=== PATIENT | female | born 1965 | race Caucasian/White ===

== ENCOUNTER → 2024-12-12 | Day surgery (SDC) | payer BC ==
[2024-12-10 09:02] LABS: BASOPHILS % 1.2 % (0.0-1.0); EOSINOPHILS % 2.4 % (0.0-6.0); LYMPHOCYTES % 28.9 % (18.0-39.1); MONOCYTES % 9.5 % (4.4-11.3); NEUTROPHILS % 58.0 % (38.7-80.0); RED CELL DISTRIBUTION WIDTH 12.7 % (11.7-14.4)
[~2024-12-12] MED LIST: ACETAMINOPHEN 1000 MG/100 ML 100 ML IV ONE; ACETAMINOPHEN500 M1 PO; ASPIRIN 325 MG TAB PO SCH; BUPIVACAINE 0.5%/EPI 30 ML SDV INJ ONE; CELECOXIB 100 MG CAP PO SCH; DEXAMETHASONE SOD PHOS INJ 4 MG/ML SDV ONE; DOCUSATE SODIUM 100 MG CAP PO PRN; FENTANYL CITRATE/PF 100MCG/2 ML INJ ONE; HYDROCODONE/APAP 7.5MG-325MG 1 EA TAB PO PRN; HYDROMORPHONE 2MG/ML ONE; IBUPROFEN200 MG PO; LIDOCAINE HCL 2% LOCAL INJ 5 ML SDV VIAL INJ ONE; MIDAZOLAM HCL 2 MG/2 ML VIAL ONE; OMEPRAZOLE40 MG PO; ONDANSETRON HCL INJ 2MG/ML 2ML 2 MG/ML VIAL IV PRN; ONDANSETRON HCL INJ 2MG/ML 2ML 2 MG/ML VIAL ONE; PROPOFOL IV EMULSION 0 ML IV ONE; PROPOFOL IV EMULSION 10 MG/ML 20 ML VIAL ONE; ROPIVACAINE/EPI/CLONIDINE/KET 50 ML SYRINGE INJ ONE; SEVOFLURANE INHAL SOLN 250 ML PEN BTL ONE; ULTRAM 50MG50 MG PO
[2024-12-12] MEDS: LACTATED RINGER'S 1,000 ML ONE (08:09)
[2024-12-12] MEDS: CEFAZOLIN SODIUM 2 GM ONE (08:12)
[2024-12-12] MEDS: SCOPOLAMINE 1 MG PATCH ONE (08:57)
[2024-12-12] MEDS: MEPERIDINE HCL INJ 25 MG/ML VIAL ONE (11:34)
[2024-12-12] MEDS: HYDROMORPHONE 1MG/1ML INJ ONE (12:12)
[2024-12-12 13:30] VITALS: BP 138/77; PULSE 82; RESP 18; O2SAT 98
== END | disposition home or self-care (01) ==
LOC: OR 07:12
PROVIDERS: ATTEND Orthopaedic Surgery Adult Reconstructive Orthopaedic Surgery
DX: M17.11 Unilateral primary osteoarthritis, right knee (principal); M19.042 Primary osteoarthritis, left hand; M19.041 Primary osteoarthritis, right hand; M32.9 Systemic lupus erythematosus, unspecified; I10 Essential (primary) hypertension; E03.9 Hypothyroidism, unspecified; G47.30 Sleep apnea, unspecified; Z96.641 Presence of right artificial hip joint; Z79.891 Long term (current) use of opiate analgesic; Z79.631 Long term (current) use of antimetabolite agent; Z79.899 Other long term (current) drug therapy; Z01.810 Encounter for preprocedural cardiovascular examination; Z01.812 Encounter for preprocedural laboratory examination; Z79.52 Long term (current) use of systemic steroids; Z79.84 Long term (current) use of oral hypoglycemic drugs; Z79.890 Hormone replacement therapy
CPT/HCPCS: 27447; 36415; 73560; 85025; 86850; 86900; 93005; 97116; 97161; C1713; C1776 ×4; J0131; J1100; J1171 ×2; J2003; J2175; J2250; J2704; J3010; J7121